=== PATIENT | male | born 1965 | race Caucasian/White ===

== ENCOUNTER 2019-03-28 12:39 | Emergency (ER) | payer SELFPAY ==
[2019-03-28] MEDS ORDERED: Lidocaine 1% w/Epinephrine 1:100K 20 ML VIAL ONE (14:48)
[2019-03-28] MEDS ORDERED: Sulfameth/Trimethoprim DS 800-160mg TAB ONE (15:03)
== END 2019-03-28 15:17 | disposition home or self-care (01) ==
LOC: MADERS 12:39
DX: L02.413 Cutaneous abscess of right upper limb (principal); F17.210 Nicotine dependence, cigarettes, uncomplicated
CPT/HCPCS: 10060

== ENCOUNTER 2019-07-22 18:58 | Emergency (ER) | payer SELFPAY ==
[2019-07-22] MEDS ORDERED: Morphine 10 MG/ML VIAL ONE (19:17)
--- NOTE | 2019-07-22 19:49 | RAD ---
RIGHT ANKLE THREE VIEWS: History: Tractor bucket injury. FINDINGS: Soft tissue laceration and air seen in the soft tissues above the ankle. There is no underlying fract ure demonstrated. IMPRESSION: No evidence of fracture. POS: LUC
--- NOTE | 2019-07-22 19:50 | RAD ---
RIGHT TIBIA AND FIBULA TWO VIEWS: History: Injury to tib/fib region. FINDINGS: Soft tissue injury and air is seen within the soft tissues related to laceration along the anterior a nd lateral aspect of the distal tibia and fibular shaft regions. No underlying fracture. IMPRESSION: No evidence of fracture. POS: LUC
[2019-07-22] MEDS ORDERED: Lidocaine 2% 20 ml MDV ONE (19:51)
[2019-07-22] MEDS ORDERED: Adacel (T-DAP) 0.5 ML SYRINGE ONE (19:51)
[2019-07-22] MEDS ORDERED: Lidocaine 2% w/Epinephrine 1:200K 20 ML VIAL ONE (19:52)
[2019-07-22] MEDS ORDERED: Sodium Chloride Irrig Solution 500 ML ONE (19:59)
[2019-07-22] MEDS ORDERED: Sodium Chloride Irrig Solution 250 ML ONE ×2 (20:05)
== END 2019-07-22 20:52 | disposition home or self-care (01) ==
LOC: MADERS 18:58
DX: S81.811A Laceration without foreign body, right lower leg, initial encounter (principal); F17.210 Nicotine dependence, cigarettes, uncomplicated; W20.8XXA Other cause of strike by thrown, projected or falling object, initial encounter; Z23 Encounter for immunization
CPT/HCPCS: 12002; 90471; 90715; 96374; J2001; J2270